=== PATIENT | female | born 1945 | race Caucasian/White ===

== ENCOUNTER 2018-02-15 07:51 | Inpatient (IN) | payer OTHER ==
[~2018-02-15] VITALS: Ht 144.8 cm; Wt 61.8 kg
[~2018-02-15 07:51] MED LIST: DULCOLAX10 MG RC; NASONEX0.05 MG/Ac; TYLENOL EXTRA500 M2 PO; VITAMIN D3400 I1 PO
[2018-02-15 07:56] VITALS: Ht 144.8 cm; Wt 61.8 kg
[2018-02-15 09:01] LABS: BASOPHIL % 0.5 % (0-2); PLATELET COUNT 233 x10^3mcL (130-400)
[2018-02-15 09:02] LABS: RED CELL DISTRIBUTION WIDTH 14.8 % (11.5-14.5)
[2018-02-15 09:12] LABS: microscopic required? NO
[2018-02-15 09:21] LABS: CALCIUM 8.7 mg/dL (8.5-10.1); CARBON DIOXIDE 26.3 mmol/L (21-32); CHLORIDE SERUM 108 mmol/L (98-107); CREATININE SERUM 0.8 mg/dL (0.6-1.0); GLUCOSE SERUM 104 mg/dL (74-106); POTASSIUM SERUM 4.4 mmol/L (3.5-5.1); SODIUM SERUM 142 mmol/L (136-145)
[2018-02-15 09:26] LABS: ALKALINE PHOSPHATASE 80 U/L (46-116); ALT/SGPT 22 U/L (14-59); AST/SGOT 14 U/L (15-37); LIPASE 124 IU/L (73-393); TOTAL PROTEIN, SERUM 6.5 g/dL (6.4-8.2)
[2018-02-15 09:28] LABS: ALBUMIN 3.2 g/dL (3.4-5.0)
[2018-02-15 09:55] LABS: urine erythrocyte NEGATIVE (NEGATIVE)
[2018-02-15] MEDS ORDERED: DULERA INH (11:59)
[2018-02-15] MEDS ORDERED: PANTOPRAZOLE SO40 M1 PO (12:00)
[2018-02-15] MEDS ORDERED: XOPENEX HF0.045 MG/1 INH (12:01)
[2018-02-15 13:31] VITALS: BP 155/87
[2018-02-15 20:37] LABS: AMPHETAMINE QUAL UR NONE DETECTED (See below)
[2018-02-15 20:50] VITALS: BP 142/75
[2018-02-16 05:58] VITALS: BP 127/71
[2018-02-16 17:06] VITALS: BP 98/46
[2018-02-16 21:08] VITALS: BP 117/57
[2018-02-17 06:26] VITALS: BP 105/52
[2018-02-17 10:47] VITALS: BP 110/78
[2018-02-17 12:38] VITALS: BP 110/78
[2018-02-17] MEDS ORDERED: XOPENEX1.25 MG/3 IH (12:42)
[2018-02-17 13:50] VITALS: BP 123/48
== END 2018-02-17 14:45 | disposition other institution (70) | DRG 384 ==
LOC: ED 07:51 → DU 11:37 → MU 11:37
PROVIDERS: Emergency Medicine; Internal Medicine Gastroenterology
PROC: 0DB68ZX Excision of Stomach, Via Natural or Artificial Opening Endoscopic, Diagnostic (ICD-10-PCS; principal; 2018-02-16 08:30)
DX: K25.9 Gastric ulcer, unspecified as acute or chronic, without hemorrhage or perforation (principal); K21.9 Gastro-esophageal reflux disease without esophagitis; K44.9 Diaphragmatic hernia without obstruction or gangrene; J45.909 Unspecified asthma, uncomplicated; R33.9 Retention of urine, unspecified; Z88.0 Allergy status to penicillin; Z88.8 Allergy status to other drugs, medicaments and biological substances; Z90.49 Acquired absence of other specified parts of digestive tract; Z90.710 Acquired absence of both cervix and uterus; Z85.3 Personal history of malignant neoplasm of breast; D64.9 Anemia, unspecified; K52.9 Noninfective gastroenteritis and colitis, unspecified
CPT/HCPCS: 43235; 76770; J1200; J1610; J2060; J2250; J2270; J2310; J3010; J3490; J7030; Q0092

== ENCOUNTER 2019-08-01 08:13 | Emergency (ER) | payer OTHER ==
[~2019-08-01] VITALS: Ht 152.4 cm; Wt 63.0 kg
[~2019-08-01 08:13] MED LIST changes: +DULERA INH; +PANTOPRAZOLE SO40 M1 PO; +XOPENEX HF0.045 MG/1 INH; +XOPENEX1.25 MG/3 IH
[2019-08-01 08:20] VITALS: Ht 152.4 cm; Wt 63.0 kg
[2019-08-01 08:50] LABS: BASOPHIL % 0.5 % (0-2); PLATELET COUNT 239 x10^3mcL (130-400)
[2019-08-01 08:55] LABS: RED CELL DISTRIBUTION WIDTH 18.4 % (11.5-14.5)
[2019-08-01 08:57] LABS: CALCIUM 8.8 mg/dL (8.5-10.1); CARBON DIOXIDE 29.2 mmol/L (21-32); CHLORIDE SERUM 105 mmol/L (98-107); CREATININE SERUM 0.8 mg/dL (0.6-1.0); GLUCOSE SERUM 99 mg/dL (74-106); POTASSIUM SERUM 3.9 mmol/L (3.5-5.1); SODIUM SERUM 138 mmol/L (136-145)
[2019-08-01 09:03] LABS: ALKALINE PHOSPHATASE 91 U/L (46-116); ALT/SGPT 23 U/L (14-59); AST/SGOT 16 U/L (15-37); BILIRUBIN TOTAL 0.3 mg/dL (0.20-1.00); CHOLESTEROL 151 mg/dL (<200); TOTAL PROTEIN, SERUM 6.9 g/dL (6.4-8.2)
[2019-08-01 09:06] LABS: ALBUMIN 3.3 g/dL (3.4-5.0)
[2019-08-01 11:09] LABS: microscopic required? YES; urine erythrocyte TRACE (NEGATIVE)
[2019-08-01 11:28] LABS: AMPHETAMINE QUAL UR NONE DETECTED (See below)
[2019-08-01 11:40] VITALS: BP 124/57
== END 2019-08-01 11:40 | disposition home or self-care (01) ==
LOC: ED 08:13
PROVIDERS: Emergency Medicine
DX: R53.1 Weakness (principal); J45.909 Unspecified asthma, uncomplicated; Z86.2 Personal history of diseases of the blood and blood-forming organs and certain disorders involving the immune mechanism; Z90.89 Acquired absence of other organs; Z90.49 Acquired absence of other specified parts of digestive tract; Z90.710 Acquired absence of both cervix and uterus; Z98.890 Other specified postprocedural states; Z85.3 Personal history of malignant neoplasm of breast; Z91.013 Allergy to seafood; Z91.011 Allergy to milk products; Z88.6 Allergy status to analgesic agent; Z88.0 Allergy status to penicillin
CPT/HCPCS: 36415; G0480; Q0092

== ENCOUNTER 2020-06-25 07:46 | Day surgery (SDC) | payer OTHER ==
[~2020-06-25] VITALS: Ht 144.8 cm; Wt 65.3 kg
[2020-06-25 07:35] VITALS: BP 124/58
[2020-06-25 14:54] VITALS: BP 107/57
== END 2020-06-25 14:50 | disposition home or self-care (01) ==
LOC: DS 07:46 → GI 13:00 → OR 13:00 → DS 13:00
PROVIDERS: ATTEND Internal Medicine Gastroenterology
DX: D50.9 Iron deficiency anemia, unspecified (principal); K44.9 Diaphragmatic hernia without obstruction or gangrene; K22.2 Esophageal obstruction; Z88.8 Allergy status to other drugs, medicaments and biological substances; Z88.0 Allergy status to penicillin
CPT/HCPCS: 43235; C1769; J1200; J1610; J2250; J2310; J3010; J3490